=== PATIENT | female | born 1985 | race Caucasian/White ===

== ENCOUNTER 2021-05-20 17:12 | Emergency (ER) | payer OTHER ==
[~2021-05-20 17:12] MED LIST: COLACE 100MG C100 MG PO; HUMULIN N100 UNIT/1 SC; HUMULIN R100 UNIT/1 INJ; TROKENDI XR100 MG PO
[2021-05-20 19:23] LABS: HEMOGLOBIN 14.6 gm/dl (12.3-15.3); RED BLOOD COUNT 4.54 M/UL (4.00-5.10)
[2021-05-20 19:56] LABS: BUN/CREATININE RATIO 15 (0-10)
== END 2021-05-20 21:25 | disposition home or self-care (01) ==
LOC: ER1 17:12
PROVIDERS: Emergency Medicine
DX: R51.9 Headache, unspecified (principal); F17.200 Nicotine dependence, unspecified, uncomplicated; Z20.822 Contact with and (suspected) exposure to COVID-19
CPT/HCPCS: 70450; 80048; 80307; 81001; 82550; 82553; 82962; 83735; 83874; 84484; 84703; 85025; 93005; 96374; 96375; 99284; J0780; J1885; U0002